=== PATIENT | female | born 1970 | race Two or more races ===

== ENCOUNTER 2019-02-23 13:50 | Outpatient (CLI) | payer OTHER | END 2019-02-23 14:25 | disposition home or self-care (01) | LOC: MAMO-SONO 13:50 | DX: Z12.31 Encounter for screening mammogram for malignant neoplasm of breast (principal); N64.4 Mastodynia; N63.10 Unspecified lump in the right breast, unspecified quadrant; N63.20 Unspecified lump in the left breast, unspecified quadrant; N60.21 Fibroadenosis of right breast; N60.22 Fibroadenosis of left breast; Z80.3 Family history of malignant neoplasm of breast; N60.01 Solitary cyst of right breast; N60.02 Solitary cyst of left breast; D24.1 Benign neoplasm of right breast; D24.2 Benign neoplasm of left breast; E04.1 Nontoxic single thyroid nodule; N20.0 Calculus of kidney ==

== ENCOUNTER 2019-12-29 07:38 | Outpatient (CLI) | payer OTHER | END 2019-12-29 08:17 | disposition home or self-care (01) | LOC: TOM 07:38 | DX: C44.529 Squamous cell carcinoma of skin of other part of trunk (principal) ==

== ENCOUNTER 2020-02-09 13:17 | Outpatient (CLI) | payer OTHER | END 2020-02-09 13:35 | disposition home or self-care (01) | LOC: SONOGRAMA 13:17 | PROVIDERS: ATTEND Obstetrics & Gynecology | DX: R10.2 Pelvic and perineal pain (principal) ==

== ENCOUNTER 2020-03-28 14:03 | Outpatient (CLI) | payer OTHER | END 2020-03-28 14:17 | disposition home or self-care (01) | LOC: MAMO-SONO 14:03 | PROVIDERS: ATTEND Obstetrics & Gynecology | DX: Z12.31 Encounter for screening mammogram for malignant neoplasm of breast (principal); N60.21 Fibroadenosis of right breast; N60.22 Fibroadenosis of left breast ==

== ENCOUNTER 2022-05-22 09:14 | Outpatient (CLI) | payer OTHER | END 2022-05-22 09:26 | disposition home or self-care (01) | LOC: SONOGRAMA 09:14 | PROVIDERS: ATTEND Urology | DX: R31.29 Other microscopic hematuria (principal) ==

== ENCOUNTER 2022-06-02 09:13 | Outpatient (CLI) | payer OTHER | END 2022-06-02 09:14 | disposition home or self-care (01) | LOC: NUCLEAR 09:13 | PROVIDERS: ATTEND Internal Medicine Cardiovascular Disease | DX: I87.2 Venous insufficiency (chronic) (peripheral) (principal) ==

== ENCOUNTER 2023-11-12 09:01 | Outpatient (CLI) | payer OTHER | END 2023-11-12 09:15 | disposition home or self-care (01) | LOC: SONOGRAMA 09:01 | DX: N64.89 Other specified disorders of breast (principal); Z12.31 Encounter for screening mammogram for malignant neoplasm of breast; D30.12 Benign neoplasm of left renal pelvis; C44.529 Squamous cell carcinoma of skin of other part of trunk ==

== ENCOUNTER 2025-02-15 08:44 | Outpatient (CLI) | payer OTHER | END 2025-02-15 09:04 | disposition home or self-care (01) | LOC: MAMO-SONO 08:44 | DX: N64.89 Other specified disorders of breast (principal); Z12.31 Encounter for screening mammogram for malignant neoplasm of breast ==